=== PATIENT | female | born 1980 | race African-American/Black ===

== ENCOUNTER 2016-11-25 09:20 | Emergency (ER) | payer OTHER ==
--- NOTE | 2016-11-25 10:37 | US ---
EXAMINATION TYPE: US venous doppler duplex LE LT DATE OF EXAM: 11/25/2016 10:24 AM COMPARISON: NONE CLINICAL HISTORY: Post op 5 days ago, left leg swelling, no h/o dvt. SIDE PERFORMED: Left VESSELS IMAGED: External Iliac Vein (EIV) Common Femoral Vein Deep Femoral Vein Greater Saphenous Vein * Femoral Vein Popliteal Vein Small Saphenous Vein * Proximal Calf Veins (* superficial vessels) Left Leg: Appears negative for DVT IMPRESSION: No evidence for DVT left lower extremity
--- NOTE | 2016-11-25 10:57 | ED ---
General Adult HPI - General Chief complaint: Extremity Problem,Nontraumatic Stated complaint: leg swollen, Post op baby Time Seen by Provider: 11/25/16 09:47 Source: patient, RN notes reviewed, old records reviewed Mode of arrival: wheelchair Limitations: no limitations - History of Present Illness Initial comments: Patient 36-year-old female status post 4 days, who presents emergency room today with chief complaint of increased swelling to the left lower extremity. Patient does admit to increased pain and swelling today. States mild discomfort yesterday. Does have discomfort and pain to the posterior calf. Patient denies any other complaints or associated symptoms. Patient denies any recent fever, chills, shortness of breath, chest pain, back pain, abdominal pain, nausea or vomiting, numbness or tingling, dysuria or hematuria, constipation or diarrhea, headaches or visual changes, or any other complaints. - Related Data Home Medications Medication Instructions Recorded Confirmed Docusate [Colace] 100 mg PO DAILY 11/25/16 11/25/16 Ferrous Sulfate [Feosol] 325 mg PO DAILY 11/25/16 11/25/16 HYDROcodone/APAP 5-325MG [[place] 1 tab PO Q4H PRN 11/25/16 11/25/16 5-325] Ibuprofen [Motrin] 600 mg PO Q8HR PRN 11/25/16 11/25/16 Multivitamins, Thera [Multivitamin] 1 tab PO DAILY 11/25/16 11/25/16 Ondansetron [Zofran] 4 mg PO TID PRN 11/25/16 11/25/16 Simethicone Chew [Mylicon Chew] 80 mg PO Q4H PRN 11/25/16 11/25/16 Allergies Allergy/AdvReac Type Severity Reaction Status Date / Time No Known Allergies Allergy Unverified 11/25/16 09:48 Review of Systems ROS Statement: Those systems with pertinent positive or pertinent negative responses have been documented in the HPI. ROS Other: All systems not noted in ROS Statement are negative. Past Medical History Past Medical History: No Reported History History of Any Multi-Drug Resistant Organisms: None Reported Past Surgical History: Section Past Psychological History: No Psychological Hx Reported Smoking Status: Current every day smoker Past Alcohol Use History: None Reported Past Drug Use History: None Reported General Exam - General Exam Comments Initial Comments: General: The patient is awake and alert, in no distress, and does not appear acutely ill. Eye: Pupils are equal, round and reactive to light, extra-ocular movements are intact. No nystagmus. There is normal conjunctiva bilaterally. No signs of icterus. Ears, nose, mouth and throat: There are moist mucous membranes and no oral lesions. Neck: The neck is supple, there is no tenderness or JVD. Cardiovascular: There is a regular rate and rhythm. No murmur, rub or gallop is appreciated. Respiratory: Lungs are clear to auscultation, respirations are non-labored, breath sounds are equal. No wheezes, stridor, rales, or rhonchi. Musculoskeletal: Normal ROM, no tenderness. Strength 5/5. Sensation intact. Pulses equal bilaterally 2+. Increased swelling to left lower extremity when compared bilaterally. Positive Homans sign. Neurological: A&O x 3. CN II-XII intact, There are no obvious motor or sensory deficits. Coordination appears grossly intact. Speech is normal. Skin: Skin is warm and dry and no rashes or lesions are noted. Psychiatric: Cooperative, appropriate mood & affect, normal judgment. Limitations: no limitations Course Vital Signs 11/25/16 09:25 Temperature 98.3 F Pulse Rate 69 Respiratory 20 Rate Blood Pressure 98/63 O2 Sat by Pulse 99 Oximetry Medical Decision Making - Medical Decision Making Patient's ultrasound negative for any evidence of DVT. Results were discussed with the patient. Patient advised to continue to elevate the affected area in increased ambulation to help with retained fluid. Advised to follow-up the family doctor over the next 2 days. Advised return to emergency room if any symptoms increase or worsen or for any other concerns. Disposition Clinical Impression: Leg edema, left Disposition: HOME SELF-CARE Condition: Good Instructions: Leg Edema (ED) Additional Instructions: Please use medication as discussed. Please follow-up with family doctor in the next 2 days of symptoms have not improved. Please return to emergency room if the symptoms increase or worsen or for any other concerns. Time of Disposition: 10:56
[2016-11-25 11:12] VITALS: BP 124/70; PULSE 77; RESP 16; TEMP 98
== END 2016-11-25 11:16 | disposition home or self-care (01) ==
LOC: EC 09:20
DX: O12.05 Gestational edema, complicating the puerperium (principal); O99.335 Smoking (tobacco) complicating the puerperium; F17.200 Nicotine dependence, unspecified, uncomplicated; Z98.890 Other specified postprocedural states
CPT/HCPCS: 99284

== ENCOUNTER → 2021-09-24 | Outpatient (CLI) | payer OTHER ==
[2021-09-24 15:09] LABS: HCT 40.2 % (37.2-46.3); HGB 12.9 g/dL (12.0-15.0); MCH 26.6 pg (27.0-32.0); MCHC 32.1 g/dL (32.0-37.0); MCV 82.9 fL (80.0-97.0); Mean Platelet Volume 10.2 fL (9.5-12.2); Platelet Count 271 X 10*3/uL (140-440); RBC 4.85 X 10*6/uL (4.10-5.20); RDW 15.8 % (11.5-14.5); WBC 6.32 X 10*3/uL (4.50-10.00)
[2021-09-24 16:26] LABS: ALT 23 U/L (8-44); AST 15 U/L (13-35); African American GFR (CKD) 98.9 (60.0-200.0); Albumin 4.3 g/dL (3.8-4.9); Alkaline Phosphatase 66 U/L (41-126); BUN/Creat Ratio 15.87 Ratio (12.00-20.00); Blood Urea Nitrogen 13.3 mg/dL (9.0-27.0); Calcium 9.2 mg/dL (8.7-10.3); Carbon Dioxide 21.2 mmol/L (21.6-31.8); Chloride 103 mmol/L (96-109); Chol/HDL Ratio 3.23 Ratio; Globulin 3.6 g/dL (1.6-3.3); Glucose 89 mg/dL (70-110); LDL Cholesterol,Calculated 102.2 mg/dL (0.0-131.0); Non-African American GFR(CKD) 85.4 (60.0-200.0); Potassium 4.7 mmol/L (3.5-5.5); Sodium 138 mmol/L (135-145); Total Bilirubin <0.20 mg/dL (0.30-1.20); Total Protein 7.9 g/dL (6.2-8.2); VLDL Calculation 17.32 mg/dL (5.00-40.00)
== END | disposition home or self-care (01) ==
LOC: LABWHC1 09:10
PROVIDERS: ATTEND Family Medicine
DX: Z00.00 Encounter for general adult medical examination without abnormal findings (principal); R63.5 Abnormal weight gain; Z86.39 Personal history of other endocrine, nutritional and metabolic disease
CPT/HCPCS: 36415; 80053; 80061; 82306; 82607; 83036; 84443; 85027

== ENCOUNTER → 2022-09-13 | Outpatient (CLI) | payer OTHER ==
[2022-09-13 14:42] LABS: African American GFR (CKD) 82.2 (60.0-200.0); Anion Gap 9.5 mmol/L (10.00-18.00); Blood Urea Nitrogen 14.1 mg/dL (9.0-27.0); Carbon Dioxide 24.6 mmol/L (20.0-27.5); Non-African American GFR(CKD) 70.9 (60.0-200.0); Potassium 4.6 mmol/L (3.5-5.5); Testosterone 31.9 ng/mL (9.01-47.94)
== END | disposition home or self-care (01) ==
LOC: LABWHC1 09:14
PROVIDERS: ATTEND Nurse Practitioner Acute Care
DX: L70.0 Acne vulgaris (principal)
CPT/HCPCS: 36415; 80051; 82565; 84402; 84403; 84520

== ENCOUNTER → 2023-10-23 | Outpatient (CLI) | payer BC, OTHER ==
--- NOTE | 2023-10-24 21:10 | MM ---
Reason for Exam: Screening (asymptomatic). Last mammogram was performed 1 year(s) and 11 month(s) ago. Patient History: Menarche at age 11. First Full-Term at age 37. Late child-bearing (after 30). Last menstrual period: 10/19/2023 Risk Values: Fátima 5 year model risk: 0.9%. NCI Lifetime model risk: 9.3%. Prior Study Comparison: 03/10/2021 Bilateral MG screening mammo w CAD - 2, [facility]. 12/10/2021 Bilateral MG screening mammo w CAD - 2, [facility]. Tissue Density: The breast tissue is heterogeneously dense. This may lower the sensitivity of mammography. Findings: Analyzed By CAD. There is no suspicious group of microcalcifications or new suspicious mass in either breast. Overall Assessment: Negative, BI-RAD 1 Management: Screening Mammogram of both breasts in 1 year. . Patient should continue monthly self-breast exams. A clinical breast exam by your physician is recommended on an annual basis. This exam should not preclude additional follow-up of suspicious palpable abnormalities. Note on Fátima scores and lifetime risk: 1. A Fátima score greater than 3% is considered moderate risk. If this is the case, consider specialist referral to assess eligibility for a risk reducing agent. 2. If overall lifetime risk for the development of breast cancer is 20% or higher, the patient may qualify for future screening with alternating mammogram and breast MRI. Electronically signed and approved by: Leslie Gant M.D. Radiologist
== END | disposition home or self-care (01) ==
LOC: RADMAMWWP 13:02
PROVIDERS: ATTEND Family Medicine
DX: Z12.31 Encounter for screening mammogram for malignant neoplasm of breast (principal)
CPT/HCPCS: 77063; 77067

== ENCOUNTER 2023-12-22 10:58 | Day surgery (SDC) | payer BC, OTHER ==
[2023-12-20 12:44] VITALS: BMI 24.5
[~2023-12-22 10:58] MED LIST: HYDROcodone/APAP 5-325MG 1 EACH TAB ONE; LACTATED RINGERS 1,000 ML IV SCH
[2023-12-22] MEDS: LACTATED RINGERS 1,000 ML IV ONE (11:49)
[2023-12-22 12:06] VITALS: TEMP 98.1
[2023-12-22] MEDS ORDERED: PROPOFOL 10 MG/ML 20 ML VIAL IV ONE (12:22)
[2023-12-22] MEDS ORDERED: LIDOCAINE 1% INJ 10MG/ML (20 ML MDV) ONE (12:22)
--- NOTE | 2023-12-22 12:40 | P.PCN ---
Date of Procedure: 12/22/23 Procedure(s) Performed: BRIEF HISTORY: Patient is a 43-year-old pleasant -[place] female scheduled for an elective colonoscopy as a part of screening for colon cancer. PROCEDURE PERFORMED: Colonoscopy. PREOPERATIVE DIAGNOSIS: Screening for colon cancer. IV sedation per Anesthesia. PROCEDURE: After informed consent was obtained, the patient, was brought into the endoscopy unit. IV sedation was administered by Anesthesia under continuous monitoring. Digital rectal examination was normal. Initially the Olympus CF-160 flexible video colonoscope was then inserted in the rectum, gradually advanced into the cecum without any difficulty. Careful examination was performed as the scope was gradually being withdrawn. Ileocecal valve and the appendiceal orifice were visualized and appeared normal. Prep was excellent. Mucosa of the cecum, ascending colon, transverse colon, descending colon, sigmoid colon, and rectum appeared normal. Scattered sigmoid diverticulosis. Retroflexion was performed in the rectum and no lesions were seen. The patient tolerated the procedure well. IMPRESSION: Normal-appearing colon from rectum to cecum no evidence of colorectal neoplasia. Scattered sigmoid diverticulosis RECOMMENDATIONS: Findings of this examination were discussed with the patient as well as a family. She was advised to have a repeat screening colonoscopy in 10 years..
[2023-12-22 13:36] VITALS: BP 112/78; PULSE 90; RESP 20
== END 2023-12-22 13:12 | disposition home or self-care (01) ==
LOC: ORWHC2ENDO 10:58
PROVIDERS: ATTEND Internal Medicine Gastroenterology
DX: Z12.11 Encounter for screening for malignant neoplasm of colon (principal); K57.30 Diverticulosis of large intestine without perforation or abscess without bleeding; I10 Essential (primary) hypertension; Z79.899 Other long term (current) drug therapy; Z88.2 Allergy status to sulfonamides
CPT/HCPCS: 81025; 45378; J2001; J2704

== ENCOUNTER → 2024-03-09 | Outpatient (CLI) | payer BC ==
[2024-03-09 22:53] LABS: Blood Urea Nitrogen 13.2 mg/dL (9.0-27.0); Carbon Dioxide 22.2 mmol/L (21.6-31.8); Chloride 108 mmol/L (96-109); Potassium 4.5 mmol/L (3.5-5.5); Sodium 137 mmol/L (135-145)
== END | disposition home or self-care (01) ==
LOC: LABWHC1 10:16
PROVIDERS: ATTEND Nurse Practitioner Adult Health
DX: L70.0 Acne vulgaris (principal); L70.5 Acne excoriee; L81.0 Postinflammatory hyperpigmentation; L70.8 Other acne; L01.01 Non-bullous impetigo; Z79.899 Other long term (current) drug therapy
CPT/HCPCS: 36415; 80051; 82565; 84402; 84403; 84520

== ENCOUNTER → 2024-06-12 | Outpatient (CLI) | payer BC ==
[2024-06-12 15:38] LABS: Blood Urea Nitrogen 11.9 mg/dL (9.0-27.0); Carbon Dioxide 22.5 mmol/L (21.6-31.8); Chloride 105 mmol/L (96-109); Potassium 3.9 mmol/L (3.5-5.5); Sodium 139 mmol/L (135-145)
== END | disposition home or self-care (01) ==
LOC: LABWHC1 11:26
PROVIDERS: ATTEND Nurse Practitioner Acute Care
DX: L70.0 Acne vulgaris (principal); L70.5 Acne excoriee; L81.0 Postinflammatory hyperpigmentation; Z79.899 Other long term (current) drug therapy
CPT/HCPCS: 36415; 80051; 82565; 84402; 84403; 84520

== ENCOUNTER → 2025-01-21 | Outpatient (CLI) | payer BC ==
--- NOTE | 2025-01-21 11:01 | MM ---
Reason for Exam: Screening (asymptomatic). Last mammogram was performed 1 year(s) and 3 month(s) ago. Patient History: Menarche at age 11. First Full-Term at age 37. Late child-bearing (after 30). Last menstrual period: 01/11/2025 Risk Values: Fátima 5 year model risk: 0.9%. NCI Lifetime model risk: 9.2%. Prior Study Comparison: 03/10/2021 Bilateral MG screening mammo w CAD - 2, [facility] . 12/10/2021 Bilateral MG screening mammo w CAD - 2, [facility] . 10/23/2023 Bilateral MG 3D screening mammo w/cad, [facility]. Tissue Density: The breasts are heterogeneously dense, which may obscure small masses. Findings: Analyzed By CAD. There is no suspicious group of microcalcifications or new suspicious mass in either breast. Overall Assessment: Benign, BI-RAD 2 Management: Screening Mammogram of both breasts in 1 year. . Patient should continue monthly self-breast exams. A clinical breast exam by your physician is recommended on an annual basis. This exam should not preclude additional follow-up of suspicious palpable abnormalities. Note on Fátima scores and lifetime risk: 1. A Fátima score greater than 3% is considered moderate risk. If this is the case, consider specialist referral to assess eligibility for a risk reducing agent. 2. If overall lifetime risk for the development of breast cancer is 20% or higher, the patient may qualify for future screening with alternating mammogram and breast MRI. [facility], , 01/21/2025 10:58 AM. Electronically signed and approved by: Alexi Calle M.D. Radiologis
== END | disposition home or self-care (01) ==
LOC: RADMAMWWP 09:54
PROVIDERS: ATTEND Family Medicine
DX: Z12.31 Encounter for screening mammogram for malignant neoplasm of breast (principal); R92.333 Mammographic heterogeneous density, bilateral breasts
CPT/HCPCS: 77063; 77067